=== PATIENT | female | born 1960 | race Caucasian/White ===

== ENCOUNTER 2025-05-07 21:07 | Inpatient (IN) | payer OTHER, MEDICAID ==
[~2025-05-07] VITALS: Ht 154.9 cm; Wt 47.8 kg
[2025-05-07] MEDS: LORazepam 2 MG/ML VIAL IM ONE (23:03)
[2025-05-08 01:24] LABS: PLATELET COUNT (AUTO) 352 K/uL (150-450); RED BLOOD CELL COUNT(AUTO) 3.24 MIL/uL (4.00-5.20); RED CELL DISTRIBUTION WIDTH 15.9 % (11.5-14.5); WHITE BLOOD COUNT (AUTO) 5.5 K/uL (4.5-11.0)
[2025-05-08 01:28] LABS: CALCIUM, TOTAL 9.3 mg/dL (8.8-10.5); CREATININE 0.94 mg/dL (0.60-1.30); GLOMERULAR FILTR. RATE CALC 60.0 mL/min (>60); GLUCOSE,RANDOM 120.0 mg/dL (70-110); RBC MORPHOLOGY COMMENT ABNORMAL RBC MORPH; SODIUM SERUM 140.0 mmol/L (136-145); UREA NITROGEN, BLOOD 9.0 mg/dL (7-18)
[2025-05-08 02:34] LABS: COVID AG,FIA SOURCE NASAL SWAB
[2025-05-08 02:54] LABS: SARS-COV2 (COVID) ANTIGEN,FIA Negative (Negative)
[2025-05-08] MEDS ORDERED: ZOLPIDEM TARTRATE 10 MG TABLET PO PRN (05:45)
[2025-05-08 11:05] LABS: APPEARANCE,URINE CLEAR (CLEAR); GLUCOSE, URINE (UA) NEGATIVE (NEGATIVE); LEUKOCYTE ESTERASE ,URINE NEGATIVE (NEGATIVE); NITRATE,URINE NEGATIVE (NEGATIVE); OCCULT BLOOD,URINE NEGATIVE (NEGATIVE); PH,URINE DRUG SCREEN 6.5 (5.0-8.0); SPECIFIC GRAVITIY, URINE 1.018 (1.003-1.030)
[2025-05-08 11:21] LABS: ALCOHOL, URINE DRUG SCREEN NEGATIVE (NEGATIVE); AMPHET/METH SCREEN,URINE POSITIVE (NEGATIVE); BARBITURATE SCREEN, URINE NEGATIVE (NEGATIVE); CANNABINOID SCREEN,URINE POSITIVE (NEGATIVE); COCAINE SCREEN,URINE NEGATIVE (NEGATIVE); METHADONE SCREEN, URINE NEGATIVE (NEGATIVE)
[2025-05-08] MEDS ORDERED: ATOR10TA PO (13:00)
[2025-05-08] MEDS ORDERED: LISI-892 PO (13:00)
[2025-05-08] MEDS ORDERED: HYDR25TA2 PO (13:00)
[2025-05-08] MEDS ORDERED: HYDR-3831 PO (13:00)
[2025-05-08] MEDS ORDERED: AMLO2.5T96 PO (13:00)
[2025-05-08] MEDS ORDERED: FOLI0.4T6 PO (13:00)
[2025-05-08 14:51] VITALS: O2SAT 98
[2025-05-08 16:47] VITALS: BP 106/78; PULSE 81; RESP 18; TEMP 97.8; O2SAT 100
[2025-05-08] MEDS ORDERED: PNEUMOCOCCAL VACCINE POLYVALENT 0.5 ML SYRINGE [PPSV23] IM. ONE (17:45)
[2025-05-08] MEDS ORDERED: AMLO5TAB66 PO (17:45)
[2025-05-08] MEDS ORDERED: FLUO-341 PO (17:45)
[2025-05-08] MEDS ORDERED: TRAZ-252 PO (17:45)
[2025-05-08] MEDS ORDERED: ATOR20TA65 PO (17:45)
[2025-05-08 20:15] VITALS: BP 118/78; PULSE 98; RESP 18; TEMP 98.1; O2SAT 98
[2025-05-09] MEDS: ATORVASTATIN CALCIUM 10 MG TABLET PO SCH (08:48)
[2025-05-09 09:00] VITALS: BP 127/87; PULSE 95; RESP 17; TEMP 97.7; O2SAT 100
[2025-05-09] MEDS: FOLIC ACID 0.4 MG TABLET PO SCH (09:00)
[2025-05-09] MEDS ORDERED: BENZOCAINE/MENTHOL [CEPACOL] LOZENGE PO PRN (09:30)
[2025-05-09] MEDS ORDERED: DOCUSATE SODIUM 100 MG CAPSULE PO PRN (09:30)
[2025-05-09] MEDS ORDERED: ONDANSETRON 4 MG TABLET PO PRN (09:30)
[2025-05-09] MEDS ORDERED: ALBUTEROL SULFATE HFA 90 MCG/PUFF 8 GM INHALER IH PRN (09:30)
[2025-05-09] MEDS ORDERED: BACITRACIN 28 GM OINTMENT TP PRN (09:30)
[2025-05-09] MEDS ORDERED: IBUPROFEN 600 MG TABLET PO PRN (09:30)
[2025-05-09] MEDS ORDERED: MAGNESIUM HYDROXIDE SUSPENSION 30 ML UDCUP PO PRN (09:30)
[2025-05-09] MEDS ORDERED: MAG HYDROX/ALUMINUM HYD/SIMETH ES 30 ML SUSPENSION UDCUP PO PRN (09:30)
[2025-05-09] MEDS ORDERED: ACETAMINOPHEN 325 MG TABLET PO PRN (09:30)
[2025-05-09] MEDS ORDERED: LOPERAMIDE HCL 2 MG CAPSULE PO PRN (09:30)
[2025-05-09] MEDS ORDERED: PETROLATUM,WHITE 28 GM JELLY TP PRN (09:30)
[2025-05-09] MEDS ORDERED: OMEPRAZOLE 20 MG CAPSULE PO PRN (09:30)
[2025-05-09 09:42] LABS: CHOL/HDL RATIO 1.6 (3.9-5.7); LDL CHOL (CALC.) 23.0 mg/dL (0-130)
[2025-05-09 20:11] VITALS: BP 142/67; PULSE 91; RESP 18; TEMP 98.1; O2SAT 98
[2025-05-10 08:26] VITALS: BP 144/89; PULSE 97; RESP 18; TEMP 97.7; O2SAT 100
[2025-05-10] MEDS: MULTIVITAMINS WITH MINERALS, THERAPEUTIC TABLET PO SCH (08:53)
[2025-05-10] MEDS ORDERED: FLUO-342 PO (17:30)
== END 2025-05-10 18:20 | disposition home or self-care (01) | DRG 885 ==
LOC: EMS 21:07 → B2S 05-08 15:50
PROVIDERS: ADMIT Psychiatry & Neurology Psychiatry; ATTEND Psychiatry & Neurology Psychiatry
PROC: GZHZZZZ Group Psychotherapy (ICD-10-PCS; principal; 2025-05-09)
DX: F33.2 Major depressive disorder, recurrent severe without psychotic features (principal); F02.818 Dementia in other diseases classified elsewhere, unspecified severity, with other behavioral disturbance; I10 Essential (primary) hypertension; F15.10 Other stimulant abuse, uncomplicated; F12.10 Cannabis abuse, uncomplicated; G47.00 Insomnia, unspecified; K59.00 Constipation, unspecified; Z20.822 Contact with and (suspected) exposure to COVID-19; E78.5 Hyperlipidemia, unspecified; F10.90 Alcohol use, unspecified, uncomplicated; Y90.0 Blood alcohol level of less than 20 mg/100 ml; Z79.899 Other long term (current) drug therapy
CPT/HCPCS: 80048; 80061; 80307; 81003; 83036; 84436; 84443; 85025; 96372; 99285; G0480; J1200; J1630; J2060